=== PATIENT | female | born 1975 | race Caucasian/White ===

== ENCOUNTER 2021-08-07 10:03 | Emergency (ER) | payer BC, SELFPAY ==
[2021-08-07 10:11] VITALS: BP 111/72; PULSE 98; RESP 20; TEMP 37.2; O2SAT 99
--- NOTE | 2021-08-07 10:35 | ED.URI ---
HPI - URI/Sore Throat General Chief Complaint: Upper Respiratory Infection Stated Complaint: Cough,Congestion Time Seen by Provider: 08/07/21 10:35 Source: patient and RN notes reviewed Mode of arrival: ambulatory Limitations: no limitations History of Present Illness HPI Narrative: 45-year-old female presents to the [facility] with complaints of a cough since jumping in a frozen pond to save her dog. States been going on for about 10 to 14 days. Has tried [id number] products with no relief. Cough is worse at night. Denies chest pain, fevers, abdominal pain. Reports it is a dry annoying cough. Related Data Home Medications Medication Instructions Recorded Confirmed alprazolam 0.5 mg PO DAILY 08/07/21 08/07/21 quetiapine 50 mg PO DAILY 08/07/21 08/07/21 Allergies Allergy/AdvReac Type Severity Reaction Status Date / Time No Known Allergies Allergy Verified 08/07/21 10:22 Review of Systems Review of Systems: All systems reviewed & are unremarkable except as noted in HPI and below Constitutional: Constitutional: Reports no additional constitutional complaints, Denies chills, Denies fever(s) and Denies headache(s) Eyes: Eyes: Reports no additional eye complaints ENT: Reports system reviewed and no additional complaints, except as documented, Denies vertigo, Denies dizziness, Denies headache(s), Denies nasal congestion and Denies sore throat Cardiovascular: Cardiovascular: Reports no additional cardiovascular complaints, Denies chest pain, Denies syncope, Denies rapid heart rate and Denies dyspnea Respiratory: Respiratory: Reports as per HPI, Denies chest congestion, Reports cough, Denies dyspnea and Denies wheezing Gastrointestinal: Gastrointestinal: Reports no additional gastrointestinal complaints, Denies abdominal pain, Denies diarrhea, Denies nausea and Denies vomiting Musculoskeletal: Musculoskeletal: Reports no additional musculoskeletal complaints, Denies back pain, Denies myalgias and Denies numbness Integumentary/Breasts: Skin/Breast: Reports system reviewed and no additional complaints, except as docu Neurologic: Reports system reviewed and no additional complaints, except as documented, Denies vertigo, Denies dizziness, Denies syncope, Denies headache(s), Denies focal weakness and Denies numbness Psychiatric: Psychiatric: Reports no additional psychiatric complaints Allergic/Immunologic: Allergic/Immunologic: Reports no additional allergic/immunologic complaints and Denies wheezing PMFSH Past Medical History Medical History (Updated 08/07/21 @ 15:49 by Erica Mendez) No pertinent past medical history Surgical History Surgical History No significant past surgical history Social History Social History (Updated 08/07/21 @ 15:49 by Erica Mendez) Smoking status: Never smoker Living arrangements: with family Gender identity (if verbalized by the patient): Female Comments At the time of my signature, I reviewed and agree with the nursing past medical, surgical, social, and family history. There is no relevant family history pertinent to the patient complaint. Exam Const: General: cooperative, healthy appearing, no acute distress, well developed and alert Nutritional Appearance: well nourished Orientation/consciousness: patient oriented x3 Limitations: no limitations HENMT: Head: normal to inspection Ears: external ears normal, TM's normal bilaterally and EAC's normal Eyes: Conjunctivae: conjunctivae normal Pupils: Equal, round and reactive pupils present Neck: Neck: normal visual inspection, no lymphadenopathy and no meningeal signs Chest: Chest palpation & inspection: normal inspection of the chest Resp: Effort & Inspection: normal respiratory effort and no use of accessory muscles Auscultation: clear to auscultation bilaterally, no crackles, no rales, no rhonchi and no wheezes Cardio: Rate: regular rate Rhythm: regular r
== END 2021-08-07 10:46 | disposition home or self-care (01) ==
PROVIDERS: Emergency Provider Nurse Practitioner; PCP Physician Assistant
DX: J40 Bronchitis, not specified as acute or chronic (principal); F32.A Depression, unspecified
CPT/HCPCS: 99213; G0463

== ENCOUNTER 2022-05-18 12:37 | Emergency (ER) | payer BC, SELFPAY ==
[2022-05-18] VITALS (7 sets, daily range): BP systolic 118–131; BP diastolic 70–87; PULSE 68–88; RESP 16–20; TEMP 36.3–37.1; O2SAT 98–100
--- NOTE | ~2022-05-18 | US_ITS ---
US OB <= 14 weeks fetus DATE: 05/18/2022 15:55 INDICATION: Pelvic pain. Positive home test. Irregular menstrual cycles, unsure of dates. TECHNIQUE: Real-time imaging via transabdominal approach, color flow and Doppler evaluation COMPARISON: None FINDINGS: The uterus measures 10.7 cm height, 5.5 cm anteroposterior dimension There may be an intrauterine gestational sac but appears mildly flattened with some focal areas of in terrupted surrounding hyperechogenicity/decidual reaction. No discernible pole or yolk sac is n oted within. Approximately 2 cm left ovarian cyst. The right ovary is obscured by bowel gas. Minimal posterior cul-de-sac free fluid. IMPRESSION: Possible intrauterine gestational sac, without discernible pole or yolk sac; short- term follow-up ultrasound imaging would be helpful for further assessment 2 cm left ovarian cyst Reviewed, dictated and finalized at [facility] Reviewed, dictated and finalized at [facility] IMPRESSION: Possible intrauterine gestational sac, without discernible po le or yolk sac; short-term follow-up ultrasound imaging would be helpful for fu rther assessment 2 cm left ovarian cyst
--- NOTE | 2022-05-18 14:32 | ED.PREGNANCY ---
HPI - General Chief complaint: Vaginal Bleeding Stated complaint: VAGINAL BLEEDING, CRAMPING, 12 WEEKS Time Seen by Provider: 05/18/22 14:31 Source: patient Mode of arrival: ambulatory Limitations: no limitations History of Present Illness HPI Narrative: Patient is a 46-year-old female G4, P2 wth a history of anemia, potentially 12 weeks dated by last menstrual period, presenting to the emergency department for evaluation of pelvic pain and vaginal beating. Patient reports that she has had irregular cycles, but did take a test which was noted to be positive at home. Patient states this would be an unintended . Patient reports slight amount of vaginal bleeding/spotting without brisk bleeding or blood clots present. She denies loss of fluids. Patient denies fever, chills, nausea, vomiting. She denies dysuria or hematuria. Patient believes her blood type is O+. Related Data Home Medications Medication Instructions Recorded Confirmed alprazolam 0.5 mg tablet 0.5 mg PO DAILY 08/07/21 08/07/21 quetiapine 50 mg tablet 50 mg PO DAILY 08/07/21 08/07/21 Allergies Allergy/AdvReac Type Severity Reaction Status Date / Time No Known Allergies Allergy Verified 05/18/22 13:45 Review of Systems Review of Systems: CONSTITUTIONAL: Denies fever, chills, or sweats. CARDIOVASCULAR: Denies chest pain, palpitations, or edema. RESPIRATORY: Denies cough or dyspnea. GASTROINTESTINAL: Reports lower pelvic pain, denies nausea, vomiting or diarrhea : Denies dysuria or hematuria. Reports vaginal bleeding. SKIN: Denies rash or itching. MUSCULOSKELETAL: Denies back pain, joint pain, or myalgia. NEUROLOGIC: Denies headache, numbness, or weakness. [facility] Past Medical History Medical History No pertinent past medical history Surgical History Surgical History No significant past surgical history Social History Social History Smoking status: Never smoker Gender identity (if verbalized by the patient): Female Exam Narrative: GENERAL: Awake, alert, conversant HEAD: Normocephalic, atraumatic. EYES: PERRLA and EOMI. ENT: Nares clear, no rhinorrhea or epistaxis. Mucous membranes moist. NECK: Supple. CHEST: No respiratory distress, breathing even and non labored HEART: Regular rate, sinus rhythm ABDOMEN:Non distended, non tender : Labia majora and minora normal without lesions. Vagina with scant blood, no brisk bleeding. No cervical motion tenderness. No adnexal tenderness or fullness bilaterally. No discharge present. EXTREMITIES: Normal range of motion. No edema. SKIN: Warm, dry, no rash. NEURO:No focal deficits. Alert and oriented x3 Course Vital Signs Vital signs: Vital Signs Temperature 36.3 C L 05/18/22 13:45 Pulse Rate 71 05/18/22 13:45 Respiratory Rate 16 05/18/22 13:45 Blood Pressure 120/74 05/18/22 13:45 Pulse Oximetry 100 05/18/22 13:45 Temperature 36.9 C 05/18/22 18:44 Pulse Rate 69 05/18/22 18:44 Respiratory Rate 18 05/18/22 18:44 Blood Pressure 128/70 05/18/22 18:44 Pulse Oximetry 98 05/18/22 18:44 MDM - OB/Uterine Contractions MDM Narrative Medical decision making narrative: Patient presenting to the emergency department for evaluation of vaginal bleeding and early menses. At the time of assessment, ABCs are intact and vital signs are stable. Patient is well-appearing. No brisk bleeding on exam. Cervix is normal-appearing without friability or pain on exam. IV access obtained and labs are drawn. Patient is anemic to 7.0. Unfortunately, patient without blood draw at this hospital, but patient states that she has been lower than that in the past. Electrolytes normal. No acute kidney injury. Urinalysis is not consistent with UTI. Beta-hCG is greater than 5000
[2022-05-18 15:03] LABS: Basophils Absolute Auto 0.1 K/mm3 (0.0-0.1); Basophils Percent Auto 0.6 % (0.2-1.2); Eosinophils Absolute Auto 0.2 K/mm3 (0-0.3); Eosinophils Percent Auto 1.5 % (0-4.4); Hematocrit 25.3 % (37.0-47.0); Immature Granulocyte Absolute 0.02 K/mm3 (0.00-0.031); Immature Granulocyte Percent A 0.2 % (0-0.5); Lymphocytes Absolute Auto 2.96 K/mm3 (0.9-3.2); Lymphocytes Percent Auto 29.2 % (18.3-44.2); Mean Corpuscular HGB Conc 27.7 g/dl (32-36); Mean Corpuscular Hemoglobin 18.1 pg (26-34); Mean Corpuscular Volume 65.5 fl (80-100); Mean Platelet Volume 9.2 fl (7.4-10.4); Monocytes Absolute Auto 0.8 K/mm3 (0.1-0.6); Monocytes Percent Auto 8.3 % (2.6-8.5); Neutrophils Absolute Auto 6.1 K/mm3 (1.3-6.7); Neutrophils Percent Auto 60.2 % (45.5-73.1); Platelet Count Result 470 k/mm3 (150-375); Red Blood Count 3.86 M/mm3 (4.2-5.4); Red Cell Distribution Width 19.9 % (11.5-14.5); White Blood Count 10.1 K/mm3 (4.5-10.0)
[2022-05-18 15:32] LABS: Anisocytosis 2+ (NORMAL); Hypochromasia 2+ (NORMAL); Platelet Estimate Increased (Adequate); Schistocytes None Seen (NORMAL)
[2022-05-18 16:17] LABS: Appearance Urine Slightly Cloudy (Clear); Bilirubin Urine Negative (Negative); Blood Urine 3+ (Negative); Color Urine Yellow (Yellow); Glucose Urine UA Negative (Negative); Ketones Urine Negative (Negative); Leukocyte Esterase Ur Trace LEU/UL (Negative); Nitrate Urine Negative (Negative); Protein Urine Negative (Negative); Urobilinogen Urine 0.2 mg/dL (<2.0); pH Urine 7.5 (5.0-9.0)
[2022-05-18 16:29] LABS: Mucus Urine Rare /lpf; RBC Urine >75 /hpf (0-2); Squamous Epithelial Cell Urine Occasional /hpf (Few); WBC Urine 0-3 /hpf
[2022-05-18 16:48] LABS: Add Urine Microscopic? YES
[2022-05-18] MEDS: TRANEXAMIC ACID 1,000MG/ISO100 1,000 MG/100 ML BAG 200 MG IVPB (18:01)
[2022-05-18] MEDS: TUBING, BLOOD PLUM PUMP TUBING 1 EACH XX (18:32)
[2022-05-18] MEDS: SODIUM CHLORIDE 0.9% IV 250 ML 30 ML IV CONT (18:32)
--- NOTE | 2022-05-18 20:27 | PC.NURSE ---
Patient refused blood work prior to dc
--- NOTE | 2022-06-01 11:50 | PC.NURSE ---
LATE ENTRY This note is being entered to document information to the patient's record. The following information was omitted on [06/01/22], by [Nickie OLIVO stopped after blood transfusion at 1930 on 05/18/22 ].
== END 2022-05-18 20:25 | disposition home or self-care (01) ==
PROVIDERS: Emergency Provider Emergency Medicine; PCP Physician Assistant
DX: O20.0 Threatened abortion (principal); O99.011 Anemia complicating pregnancy, first trimester; D64.9 Anemia, unspecified; O34.81 Maternal care for other abnormalities of pelvic organs, first trimester; N83.202 Unspecified ovarian cyst, left side; Z3A.01 Less than 8 weeks gestation of pregnancy
CPT/HCPCS: 36415; 36430; 76801; 81001; 84702; 85025; 85461; 86850; 86900; 86901; 86923; 96361; 96365; 99284; J7050; P9016

== ENCOUNTER 2022-12-07 18:41 | Emergency (ER) | payer BC, SELFPAY ==
--- NOTE | 2022-12-07 18:46 | ED.SKABFB ---
HPI - Skin/Abscess/Foreign Bdy General Chief complaint: Skin/Abscess/Foreign Body Stated complaint: Insect Bite Time Seen by Provider: 12/07/22 19:18 Source: patient and RN notes reviewed Mode of arrival: ambulatory Limitations: no limitations History of Present Illness HPI narrative: 47-year-old female presents with concern for a tick bite behind her left ear. She reports she pulled a tick off of her this morning that was swollen. She is unsure how long it was on there. She reports she has a swollen lymph node just below that. She reports a scab at the area of the tick bite. She denies fever, joint pain, body aches. MD complaint: insect bite/sting Related Data Allergies Allergy/AdvReac Type Severity Reaction Status Date / Time No Known Allergies Allergy Verified 12/07/22 18:54 Review of Systems Review of Systems: CONSTITUTIONAL: Denies malaise, chills, sweats, or fever. EYES: Denies redness, or discharge. ENT: Denies rhinorrhea, congestion, swollen lips, swollen tongue CARDIOVASCULAR: Denies chest pain, palpitations, or edema. RESPIRATORY: Denies cough or dyspnea. GASTROINTESTINAL: Denies abdominal pain, nausea, vomiting SKIN: Reports tick bite behind the left ear, swollen lymph nodes MUSCULOSKELETAL: Denies joint pain or myalgia. NEUROLOGIC: Denies headache. All systems reviewed & are unremarkable except as noted in HPI and below PMFSH Past Medical History Medical History (Updated 12/07/22 @ 19:26 by Erica Angel NP) Anxiety delivery delivered No pertinent past medical history Surgical History Surgical History (Updated 05/23/22 @ 15:03 by Karla Albarran CMA) H/O breast augmentation No significant past surgical history Social History Social History (Updated 05/26/22 @ 09:32 by Karla Albarran CMA) Smoking status: Never smoker Alcohol intake: never Substance use: never Living arrangements: with family Occupation/Education: occupation Gender identity (if verbalized by the patient): Female Sexual Orientation (if Verbalized by the Patient): Straight or Heterosexual Comments At time of signature, agree with nursing past medical, surgical, social and family history. There is no relevant family history pertinent to the presenting complaint Exam Narrative: GENERAL: Well-appearing, well-nourished, and in no acute distress. HEAD: Normocephalic, atraumatic. EYES: PERRLA, conjunctivae clear, and EOMI. ENT: Mucous membranes moist. Oropharynx without edema, erythema or lesions. NECK: Supple. Postauricular lymph node swollen CHEST: Clear to auscultation. No respiratory distress. HEART: Regular rate and rhythm. SKIN: Warm, dry. Scab noted in the hairline behind the ear NEURO: Alert and oriented x3. PSYCH: Normal mood and affect Course Course Emergency Course: Patient is aware of diagnosis, understands and agrees to treatment plan. Anticipatory guidance given. Patient agrees to follow-up as directed and is aware of reasons to seek care at the emergency department. Portions of this record may have been created with voice recognition software Level of Care: Express Care Visit Vital Signs Vital signs: Reviewed. MDM - Skin/Abscess/Foreign Bdy MDM Narrative Medical decision making narrative: Does not appear at this time to be erythema multiforme, bullous, SJS, TEN; no evidence at this time to suggest RMSF, endocarditis or Lyme disease; patient looks well, nontoxic and is tolerating oral intake; no neurologic signs or symptoms; no headache, photophobia or neck pain; afebrile; appropriate for initial outpatient treatment; discussed the importance of follow-up, patient agrees; question, viral exanthema, contact dermatitis, allergic dermatitis, eczema, urticaria, skin infection, insect bite. No soft palate or uvula edema, no tongue, lip edema or other mucosal involvement, no respiratory compromise, no stridor, no wheezing, no wheezing, no history of syncope, no hypotension, no
[2022-12-07 18:53] VITALS: BP 137/87; PULSE 79; RESP 16; TEMP 37.7; O2SAT 100
== END 2022-12-07 19:30 | disposition home or self-care (01) ==
PROVIDERS: Emergency Provider Nurse Practitioner; PCP Physician Assistant
DX: S00.06XA Insect bite (nonvenomous) of scalp, initial encounter (principal); W57.XXXA Bitten or stung by nonvenomous insect and other nonvenomous arthropods, initial encounter
CPT/HCPCS: 99213; G0463

== ENCOUNTER 2024-05-18 11:42 | Emergency (ER) | payer BC, SELFPAY ==
[2024-05-18 11:55] VITALS: BP 111/72; PULSE 69; RESP 12; TEMP 36.8; O2SAT 100
--- NOTE | 2024-05-18 12:20 | ED.GENADULT ---
HPI - General Adult General Chief complaint: Back Pain/Injury Stated complaint: urinary/kidney issue Source: patient Mode of arrival: ambulatory Limitations: no limitations History of Present Illness HPI narrative: Patient presents for evaluation of low back pain for the last week. She cannot identify any precipitating injury. 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 She states she develops tightness in her low back when she stands up. After standing for some time she feels her muscles relax. She rates her pain 5/10 in severity. She thought she had a urinary tract infection. She denies any urinary symptoms, abdominal pain, fever, chills, nausea, vomiting, vaginal bleeding or discharge. She has been taking ibuprofen for her symptoms, which seems to help. Related Data Allergies Allergy/AdvReac Type Severity Reaction Status Date / Time No Known Allergies Allergy Verified 05/18/24 11:53 Review of Systems Review of Systems: CONSTITUTIONAL: Denies fever, chills, or sweats. EYES: Denies visual changes, redness, or discharge. ENT: Denies rhinorrhea, congestion, sore throat, or otalgia. CARDIOVASCULAR: Denies chest pain, palpitations, or edema. RESPIRATORY: Denies cough or dyspnea. GASTROINTESTINAL: Denies abdominal pain, nausea, vomiting, or diarrhea. GENITOURINARY: Denies dysuria or hematuria. SKIN: Denies rash or itching. MUSCULOSKELETAL: Reports low back pain NEUROLOGIC: Denies headache, numbness, dizziness, or weakness. PSYCHIATRIC: Denies anxiety or depression. [facility] Past Medical History Medical History Anxiety delivery delivered No pertinent past medical history Surgical History Surgical History H/O breast augmentation No significant past surgical history Family History Family History (Updated 05/18/24 @ 12:21 by BIJAN Conde, PAULA) Mother Family history non-contributory Social History Social History Smoking status: Never smoker Alcohol intake: never Substance use: never Living arrangements: with family Occupation/Education: occupation Gender identity (if verbalized by the patient): Female Sexual Orientation (if Verbalized by the Patient): Straight or Heterosexual Exam Narrative: GENERAL: Well-appearing, well-nourished, and in no acute distress. HEAD: Normocephalic, atraumatic. EYES: PERRLA and EOMI. ENT: Nares clear, no rhinorrhea or epistaxis. Mucous membranes moist. Oropharynx without tonsillar hypertrophy exudate or other lesions. Bilateral TMs pearly buckner nonbulging NECK: Supple. No adenopathy or masses. No carotid bruits or JVD CHEST: Clear to auscultation. No respiratory distress. No wheezes rales or rhonchi HEART: Regular rate and rhythm. No murmur heard. Normal peripheral pulses. ABDOMEN: Soft, nontender, nondistended, normal active bowel sounds. BACK: Tenderness noted in lumbar spinal region. No CVA tenderness EXTREMITIES: Normal range of motion. No edema. SKIN: Warm, dry, no rash. NEURO: No focal deficits. Alert and oriented x3. PSYCH: Normal mood and affect. Course Course Emergency Course: This is a 48-year-old female who presented for evaluation of low back pain. We discuss potential imaging and through shared decision making opted to forego. Her description of pain sounds like muscle tightness. Will dc with flexeril. She can continue with NSAIDs and application of warm moist heat. Follow up with primary care provider. Go to the ER for worsening symptoms. Pt in agreement with plan of care. Level of Care: Express Care Visit Discharge Plan Discharge Clinical Impression: Muscle tightness Patient Disposition: Home, Self-Care Condition: Stable Instructions: Antibiotic Form, Muscle Strain (DC) Patient Language: [place]guill[place] Prescriptions: New cyclobenzaprine 10 mg tablet 10 mg PO TID PRN (Reason: muscle spasm) Qty: 15 0RF Follow-up/Referrals: Dinora,HOLA Melgar [Primary Care Provider] - Time of Disposition: 12:18
[2024-05-18 12:43] LABS: EDUAAPPEAR Cloudy; EDUABILI Negative (Negative); EDUABLOOD Negative (Negative); EDUACOLOR1 Yellow; EDUAGLUCOSE Negative (Negative); EDUAKETONE Negative (Negative); EDUALEUKO Negative (Negative); EDUANITRATE Negative (Negative); EDUAPROTEIN Negative (Negative); EDUAUROBILI 0.2
== END 2024-05-18 12:24 | disposition home or self-care (01) ==
PROVIDERS: Emergency Provider Nurse Practitioner; PCP Physician Assistant
DX: M62.89 Other specified disorders of muscle (principal)
CPT/HCPCS: 81003; 99213; G0463